=== PATIENT | male | born 1970 | race Caucasian/White ===

== ENCOUNTER 2019-06-23 06:56 | Day surgery (SDC) | payer OTHER ==
[2019-06-23] MEDS ORDERED: PROPOFOL INJ 200 MG/20 ML VIAL IV ONE (07:39)
[2019-06-23 10:18] VITALS: BP 135/90
--- NOTE | 2019-06-23 12:47 | Operative Report ---
Operative Report DATE OF SURGERY: 06/23/19 Operative Report: Risk, benefits and alternatives of the procedure including the risk of bleeding, perforation requiring surgery have been explained to the patient in detail and informed consent has been obtained. Patient is placed in a left, lateral decubital position. Timeout was called. Propofol medication is administered. Rectal examination is done which did not reveal any masses, tears or fissures. An Olympus videoscope was introduced into the patient's rectum. Scope was then carefully advanced all the way to the cecum. Cecum was identified by the usual anatomical landmarks of the ileocecal valve as well as the appendiceal office. Photodocumentation is obtained. Scope was then sequentially pulled back via the various segments of the colon including the ascending colon, hepatic flexure, transverse colon, splenic flexure, descending colon finding to the rectosigmoid portions of the colon. Retroflexion maneuvers performed. PREOPERATIVE DIAGNOSIS: Colorectal cancer screening POSTOPERATIVE DIAGNOSIS: 2 rectal polyps I removed via snare polypectomy and retrieved. Internal hemorrhoids OPERATION: Colonoscopy with snare polypectomy SURGEON: HUMBERTO BRYAN ANESTHESIA: LMAC TISSUE REMOVED OR ALTERED: As noted above. COMPLICATIONS: None. ESTIMATED BLOOD LOSS: None. INTRAOPERATIVE FINDINGS: As noted above. PROCEDURE: Patient tolerated the procedure well. No immediate postprocedure complications are noted. Patient is discharged in good condition. Discharge date 06/23/2019. Discharge diet: Regular. Discharge activity: Regular. 2 to 3-week follow-up to discuss findings. Patient is instructed to call the office or proceed to the emergency room should there be any further problems or questions. 3 to 5-year surveillance colonoscopy.
== END 2019-06-23 10:19 | disposition home or self-care (01) ==
LOC: END 06:56
PROVIDERS: ATTEND Internal Medicine Gastroenterology
DX: D12.8 Benign neoplasm of rectum (principal); K64.8 Other hemorrhoids; E78.5 Hyperlipidemia, unspecified; F17.210 Nicotine dependence, cigarettes, uncomplicated; E11.9 Type 2 diabetes mellitus without complications; Z79.84 Long term (current) use of oral hypoglycemic drugs; Z79.899 Other long term (current) drug therapy; E66.9 Obesity, unspecified; Z68.39 Body mass index [BMI] 39.0-39.9, adult
CPT/HCPCS: 45385; 82962; 88305 ×2; 00812; J2704; 812

== ENCOUNTER 2019-07-04 09:12 | Observation (INO) | payer OTHER ==
[2019-07-04 10:14] LABS: ABSOLUTE BASOPHILS # (AUTO) 0.1 10^3/uL (0.0-0.2); ABSOLUTE EOSINOPHILS # (AUTO) 0.5 10^3/uL (0.0-0.6); ABSOLUTE LYMPHOCYTES (AUTO) 4.5 10^3/uL (0.5-4.7); ABSOLUTE MONOCYTES (AUTO) 1.6 10^3/uL (0.1-1.4); ABSOLUTE NEUT (AUTO) 13.2 10^3/uL (1.7-8.2); BASOPHILS % (AUTO) 0.5 % (0-2); EOSINOPHILS % (AUTO) 2.3 % (0-6); HEMATOCRIT 41.3 % (37.9-51.0); HEMOGLOBIN 13.6 g/dL (13.5-17.0); LYMPHOCYTES % (AUTO) 22.8 % (13-45); MEAN CORPUSCULAR HGB CONC 32.8 g/dL (32.0-36.0); MEAN CORPUSCULAR VOLUME 85 fl (80-97); MONOCYTES % (AUTO) 7.9 % (3-13); PLATELET COUNT 305 10^3/uL (150-450); RED BLOOD COUNT 4.85 10^6/uL (4.35-5.55); RED CELL DISTRIBUTION WIDTH 13.3 % (11.5-14.0); SEGMENTED NEUTROPHILS % (AUTO) 66.5 % (42-78); TOTAL CELLS COUNTED % (AUTO) 100 %; WHITE BLOOD COUNT 19.9 10^3/uL (4.0-10.5)
[2019-07-04 10:19] LABS: PROTHROMBIN TIME 13.2 SEC (11.4-15.4)
[2019-07-04 10:37] LABS: ALBUMIN 4.2 g/dL (3.5-5.0); ANION GAP 14 (5-19); BILIRUBIN,DIRECT 0.3 mg/dL (0.0-0.4); BILIRUBIN,TOTAL 0.6 mg/dL (0.2-1.3); CARBON DIOXIDE 23 mmol/L (22-30); CHLORIDE 99 mmol/L (98-107); NEONATAL BILIRUBIN RESULT 0.4 mg/dL (0.1-1.1); TOTAL PROTEIN 7.8 g/dL (6.3-8.2)
[2019-07-04 10:46] LABS: ALKALINE PHOSPHATASE 110 U/L (38-126); ASPARTATE AMINO TRANSFERASE 25 U/L (17-59); BLOOD UREA NITROGEN 19 mg/dL (7-20); CALCIUM 9.5 mg/dL (8.4-10.2); GLUCOSE 257 mg/dL (75-110)
[2019-07-04] MEDS ORDERED: NORMAL SALINE 1000 ML 1,000 ML IV ONE (10:46)
--- NOTE | 2019-07-04 10:51 | ER Document Report ---
ED GI Bleed / Rectal Pain - General Chief Complaint: Rectal Bleeding Stated Complaint: DIARRHEA,BLOOD IN STOOL Time Seen by Provider: 07/04/19 09:50 Notes: 48-year-old man presents to the emergency department history of colonoscopy on 06/23/2019. He states that 2 polyps were removed at that time. This morning he began having rectal bleeding. States he felt that he needed to use the bathroom and noted gushing of bright red blood. He has had multiple episodes of bright red blood per rectum since that time. He denies abdominal pain, nausea or vomiting. No prior history of GI bleeds in the past. Apparently had a Cologuard which came back positive leading to the colonoscopy in late May. Denies any other associated medical problems. TRAVEL OUTSIDE OF THE [place] IN LAST 30 DAYS: No - Related Data Allergies/Adverse Reactions: No Known Allergies Allergy (Verified 06/23/19 07:33) Past Medical History - Social History Smoking Status: Current Every Day Smoker Family History: Reviewed & Not Pertinent Patient has suicidal ideation: No Patient has homicidal ideation: No - Past Medical History Cardiac Medical History: Denies: Hx Coronary Artery Disease, Hx Heart Attack, Hx Hypertension Pulmonary Medical History: Denies: Hx Asthma, Hx Bronchitis, Hx COPD, Hx Pneumonia Neurological Medical History: Denies: Hx Cerebrovascular Accident, Hx Seizures Musculoskeletal Medical History: Denies Hx Arthritis - Immunizations Hx Diphtheria, Pertussis, Tetanus Vaccination: - UNSURE Hx Pneumococcal Vaccination: 12/29/18 Review of Systems - Review of Systems Notes: Constitutional: Negative for fever. HENT: Negative for sore throat. Eyes: Negative for visual changes. Cardiovascular: + Tachycardia Respiratory: Negative for shortness of breath. Gastrointestinal: + Lower GI bleeding Genitourinary: + Right flank pain. Musculoskeletal: Negative for back pain. Skin: Negative for rash. Neurological: Negative for headaches, weakness or numbness. 10 point ROS negative except as marked above and in HPI. Physical Exam - Vital signs Vitals: Temp Pulse Resp BP Pulse Ox 99.0 F 124 H 20 112/58 L 97 07/04/19 09:19 07/04/19 09:19 07/04/19 09:19 07/04/19 09:19 07/04/19 09:19 - Notes Notes: PHYSICAL EXAMINATION: Physical Exam: General: Well-nourished well-developed 48-year-old man in no acute distress HEENT: NC/AT, pupils equal round and reactive to light, MM moist,nares clear, oropharynx clear, airway patent Neck: supple, no adenopathy, no masses. Good range of motion Lungs: clear, no wheezing, no rales no rhonchi CVS: Regular rate and rhythm no murmur gallop or rub Abdomen: Soft, active, nontender, no masses, no hepatosplenomegaly Ext: No edema, clubbing or cyanosis. Neuro: Alert and responsive, moving all 4 extremities on command, cranial nerves intact, no focal findings Skin: Intact no open lesions, no rash PSYCH: Normal mood, normal affect. Course - Re-evaluation Re-evalutation: 07/04/19 12:31 Patient is given IV fluids and, type and screen, patient is hemodynamically stable. Discussed the patient with Dr. Francisco, suggested the patient be brought into the hospital and possibly scoped later today. Hospitalist is contacted Dr. Cedeno, patient will be admitted for further evaluation and treatment. - Vital Signs Vital signs: Temp Pulse Resp BP Pulse Ox 98.2 F 84 18 96/53 L 96 07/05/19 11:12 07/05/19 11:12 07/05/19 11:12 07/05/19 04:18 07/05/19 11:12 - Laboratory Result Diagrams: 07/05/19 05:02 07/05/19 05:02 Laboratory results interpreted by me: 07/04/19 07/04/19 09:50 09:50 WBC 19.9 H Absolute Neuts (auto) 13.2 H Absolute Monos (auto) 1.6 H Sodium 135.9 L Glucose 257 H - Diagnostic Test Radiology reviewed: Image reviewed, Reports reviewed - Chest x-ray: No acute findings CT abdomen and pelvis with IV contrast. 2.3 mm stone in the right renal pelvis with a collecting system fullness, no obstruction noted. No acute intra-abdominal process. Discharge - Discharge Clinical Impression: Lower GI bleeding Condition: Good Disposition: ADMITTED INPATIENT Admitting Provider: Wilian (Hospitalist) Unit Admitted: [facility]
--- NOTE | 2019-07-04 11:56 | RADIOLOGY REPORT (SQ) ---
EXAM DESCRIPTION: CT ABD/PELVIS WITH IV ONLY COMPLETED DATE/TIME: 07/04/2019 11:38 am REASON FOR STUDY: GI bleed COMPARISON: None. TECHNIQUE: CT scan of the abdomen and pelvis performed using helical scanning technique with dynamic intravenous contrast injection. Patient was given oral contrast. Images reviewed with lung, soft ti ssue, and bone windows. Reconstructed coronal and sagittal MPR images reviewed. Delayed images for ev aluation of the urinary system also acquired. All images stored on PACS. All CT scanners at this facility use dose modulation, iterative reconstruction, and/or weight based d osing when appropriate to reduce radiation dose to as low as reasonably achievable (ALARA). [facility]: Dose Right [facility]: CareDose [facility]: Dose Right [facility]: Teradose 4D [facility]: [employer] CONTRAST TYPE AND DOSE: contrast/concentration: Isovue 350.00 mg/ml; Total Contrast Delivered: 100.0 ml; Total Saline Delivered: 68.0 ml RENAL FUNCTION: Creatinine 1.04 RADIATION DOSE: CT Rad equipment meets quality standard of care and radiation dose reduction techniq ues were employed. CTDIvol: 19.5 - 20.4 mGy. DLP: 2228 mGy-cm.. LIMITATIONS: None. FINDINGS: LOWER CHEST: No significant findings. No nodules or infiltrates. LIVER: Normal size. No masses. No dilated ducts. SPLEEN: Normal size. No focal lesions. PANCREAS: No masses. No significant calcifications. No adjacent inflammation or peripancreatic fluid collections. Pancreatic duct not dilated. GALLBLADDER: No identified stones by CT criteria. No inflammatory changes to suggest cholecystitis. ADRENAL GLANDS: No significant masses or asymmetry. RIGHT KIDNEY AND URETER: No solid masses. There is a 2.3 cm stone within the right renal pelvis wit h mild fullness of the collecting system (Hounsfield units 1090). Additional punctate stone within t he upper pole. 8 mm stone within the lower pole . No hydroureter LEFT KIDNEY AND URETER: No solid masses. There is a nonobstructing stone within the interpolar reena on measuring 9 mm. No hydronephrosis or hydroureter. AORTA AND VESSELS: No aneurysm. No dissection. Renal arteries, SMA, celiac without stenosis. RETROPERITONEUM: No retroperitoneal adenopathy, hemorrhage or masses. BOWEL AND PERITONEAL CAVITY: No masses or inflammatory changes. No free fluid or peritoneal masses. APPENDIX: Normal. PELVIS: Unremarkable urinary bladder. Non opacification of the left ureter on delayed imaging. No p elvic free fluid, adenopathy or mass. ABDOMINAL WALL: Diastases recti. Small fat containing left inguinal hernia. No discrete soft tissue mass. BONES: No acute bony abnormality. No suspicious osseous lesions. OTHER: No other significant finding. IMPRESSION: 1. 2.3 cm stone within the right renal pelvis with associated fullness of the collectin g system. There is non opacification of the right-sided ureter. 2. Additional nonobstructing bilateral renal stones as above. 3. No other evidence of acute intra-abdominal/pelvic process. TECHNICAL DOCUMENTATION: JOB ID: [id number] Quality ID # [id number]: Final reports with documentation of one or more dose reduction techniques (e.g., Au tomated exposure control, adjustment of the mA and/or kV according to patient size, use of iterative reconstruction technique) 2010 [employer]- All Rights Reserved Reading location - IP/workstation name: [email or web address]
[2019-07-04] MEDS: PIPERACILLIN SODIUM/TAZOBACTAM 4.5 GM in NORMAL SALINE 100 ML IV SCH ×3 (12:01→23:28)
--- NOTE | 2019-07-04 12:04 | RADIOLOGY REPORT (SQ) ---
EXAM DESCRIPTION: CHEST SINGLE VIEW COMPLETED DATE/TIME: 07/04/2019 11:44 am REASON FOR STUDY: Possible sepsis COMPARISON: None. EXAM PARAMETERS: NUMBER OF VIEWS: One view. TECHNIQUE: Single frontal radiographic view of the chest acquired. RADIATION DOSE: NA LIMITATIONS: None. FINDINGS: LUNGS AND PLEURA: No opacities, masses or pneumothorax. No pleural effusion. MEDIASTINUM AND HILAR STRUCTURES: No masses. Contour normal. HEART AND VASCULAR STRUCTURES: Heart normal in size. Normal vasculature. BONES: No acute findings. HARDWARE: None in the chest. OTHER: No other significant finding. IMPRESSION: NO ACUTE RADIOGRAPHIC FINDING IN THE CHEST. TECHNICAL DOCUMENTATION: JOB ID: [id number] 2010 [employer]- All Rights Reserved Reading location - IP/workstation name: [email or web address]
[2019-07-04] MEDS ORDERED: GLUCAGON,HUMAN RECOMB 1 MG INJ ONE (12:41)
[2019-07-04] MEDS ORDERED: DIPHENHYDRAMINE HCL 50 MG/ML VIAL ONE (12:41)
[2019-07-04] MEDS ORDERED: NALOXONE HCL INJ/PF 0.4 MG/1 ML SDV ONE (12:41)
[2019-07-04] MEDS ORDERED: ONDANSETRON HCL INJ/PF 4 MG/2 ML SDV ONE (12:41)
[2019-07-04] MEDS ORDERED: FLUMAZENIL INJ 0.5 MG/5 ML VIAL ONE (12:41)
[2019-07-04] MEDS ORDERED: EPINEPHRINE INJ 1 MG/10 ML DISP.SYRIN ONE (12:41)
[2019-07-04] MEDS: MIDAZOLAM 2 MG/2 ML INJ ONE ×2 (13:08→13:20)
[2019-07-04] MEDS: FENTANYL CITRATE INJ/PF 100 MCG/2 ML AMPUL ONE ×3 (13:10→13:15)
--- NOTE | 2019-07-04 14:23 | PDOC H&P ---
History of Present Illness Admission Date/PCP: 07/04/19 12:48 JHONNY KENNEDY MD History of Present Illness: ELEN ZAPATA JR is a 48 year old male comes in through the emergency room for bright red blood per rectum this morning. According to the patient he states that he felt like he had to have a bowel movement and when he went to the bathroom he noticed a "gush" of bright red blood he had multiple episodes of this this morning. Denies any nausea or vomiting or any abdominal pain. No history of previous GI bleeds in the past. Patient evidently did a Cologuard back in April or May and subsequently due to it being positive had a colonoscopy June 23 of this year. At that time [address] Gordillo the ordnance truck installation mechanic who performed the colonoscopy has been consulted and is going to perform a colonoscopy today evaluation of the bright red blood per rectum. Past Medical History Cardiac Medical History: Denies: Coronary Artery Disease, Myocardial Infarction, Hypertension Pulmonary Medical History: Denies: Asthma, Bronchitis, Chronic Obstructive Pulmonary Disease (COPD), Pn eumonia Neurological Medical History: Denies: Seizures Endocrine Medical History: Reports: Diabetes Mellitus Type 2 Musculoskeltal Medical History: Denies: Arthritis Hematology: Denies: Anemia Social History Smoking Status: Current Every Day Smoker - Advance Directive Resuscitation Status: Full Code Family History Parental Family History Reviewed: No Children Family History Reviewed: No Sibling(s) Family History Reviewed.: No Medication/Allergy Home Medications: Atorvastatin Calcium [Lipitor] 80 mg PO QHS 06/23/19 Glimepiride [Amaryl 4 mg Tablet] 4 mg PO DAILY 06/23/19 Metformin HCl 1,000 mg PO BID 06/23/19 Allergies/Adverse Reactions: No Known Allergies Allergy (Verified 06/23/19 07:33) Review of Systems Constitutional: ABSENT: chills, fever(s), headache(s), weight gain, weight loss Cardiovascular: ABSENT: chest pain, dyspnea on exertion, edema, orthropnea, palpitations Respiratory: ABSENT: cough, hemoptysis Gastrointestinal: PRESENT: hematochezia Neurological: ABSENT: abnormal gait, abnormal speech, confusion, dizziness, focal weakness, syncope Psychiatric: ABSENT: anxiety, depression, homidical ideation, suicidal ideation Physical Exam Vital Signs: Temp Pulse Resp BP Pulse Ox 99.0 F 106 H 22 H 112/73 94 07/04/19 09:19 07/04/19 14:05 07/04/19 14:05 07/04/19 14:05 07/04/19 14:05 Intake & Output 07/03/19 07/04/19 07/05/19 06:59 06:59 06:59 Intake Total 100 Balance 100 Weight 110.7 kg General appearance: PRESENT: no acute distress Respiratory exam: PRESENT: clear to auscultation tar. ABSENT: rales, rhonchi, wheezes Cardiovascular exam: PRESENT: RRR. ABSENT: diastolic murmur, rubs, systolic murmur GI/Abdominal exam: PRESENT: other - For to GI Rectal exam: PRESENT: deferred, heme (+) stool Results Laboratory Results: 07/04/19 09:50 07/04/19 09:50 07/04/19 07/04/19 07/04/19 09:50 09:50 09:50 WBC 19.9 H RBC 4.85 Hgb 13.6 Hct 41.3 MCV 85 MCH 28.0 MCHC 32.8 RDW 13.3 Plt Count 305 Seg Neutrophils % 66.5 Sodium 135.9 L Potassium 5.0 Chloride 99 Carbon Dioxide 23 Anion Gap 14 BUN 19 Creatinine 1.04 Est GFR ( Amer) > 60 Glucose 257 H Lactic Acid Calcium 9.5 Total Bilirubin 0.6 AST 25 Alkaline Phosphatase 110 Total Protein 7.8 Albumin 4.2 Blood Type A POSITIVE Antibody Screen NEGATIVE 07/04/19 11:00 WBC RBC Hgb Hct MCV MCH MCHC RDW Plt Count Seg Neutrophils % Sodium Potassium Chloride Carbon Dioxide Anion Gap BUN Creatinine Est GFR ( Amer) Glucose Lactic Acid 1.9 Calcium Total Bilirubin AST Alkaline Phosphatase Total Protein Albumin Blood Type Antibody Screen Impressions: Chest X-Ray 07/04/19 10:49 IMPRESSION: NO ACUTE RADIOGRAPHIC FINDING IN THE CHEST. Abdomen/Pelvis CT 07/04/19 10:50 IMPRESSION: 1. 2.3 cm stone within the right renal pelvis with associated fullness of the collecting system. There is non opacification of the right- sided ureter. 2. Additional nonobstructing bilateral renal stones as above. 3. No other evidence of acute intra-abdominal/pelvic process. Assessment and Plan - Diagnosis (1) Diabetes Is this a current diagnosis for this admission?: Yes (2) Colon polyps Is this a current diagnosis for this admission?: Yes (3) Lower GI bleeding Is this a current diagnosis for this admission?: Yes - Plan Summary Summary: Patient is hemodynamically stable. The emergency room his vital signs are pressure 99, has been elevated he came in at 124 recently it was 106 after IV fluids. BP has always been stable on admission it was 112/58 recently following the colonoscopy was 112/73. O2 sats 98% on room air Patient has already had a colonoscopy by Dr. Francisco. Patient hemoglobin is stable 13.6 hematocrit 41.3 platelets 305,000. Count is elevated for some reason 19.9 although patient has no source of infection. Coags are normal. Chemistry reveals potassium slightly high at 5.0, glucose high at 257, lactic acid 1.9. CT scan of the abdomen and pelvis the emergency room shows kidney stones laterally but no evidence of acute intra-abdominal or pelvic process. We will wait to hear from gastroenterology concerning further studies. Patient will be put in observation status overnight to recheck hemoglobin and white blood cell count. - Time Time Spent with patient: 35 or more minutes
[2019-07-04] MEDS ORDERED: ONDANSETRON 4 MG TAB.RAPDIS PO PRN (14:47)
[2019-07-04] MEDS ORDERED: OXYCODONE-ACETAMINOPHEN 5-325 MG TABLET PO PRN (14:47)
[2019-07-04] MEDS ORDERED: TEMAZEPAM 7.5 MG CAPSULE PO PRN (14:47)
[2019-07-04] MEDS ORDERED: MAG HYDROX/AL HYDROX/SIMETH SUSP 30 ML UDCUP PO PRN (14:47)
[2019-07-04] MEDS ORDERED: ACETAMINOPHEN 325 MG TABLET PO PRN (14:47)
[2019-07-04] MEDS ORDERED: ONDANSETRON HCL INJ/PF 4 MG/2 ML SDV IV PRN (14:47)
[2019-07-04] MEDS ORDERED: DEXTROSE 40% GEL 15 GM TUBE PO PRN ×2 (14:56)
[2019-07-04] MEDS ORDERED: DEXTROSE 50%-WATER 25 GM/50 ML DISP.SYRIN IV PRN ×2 (14:56)
[2019-07-04] MEDS ORDERED: GLUCAGON,HUMAN RECOMB 1 MG INJ IM PRN (14:56)
[2019-07-04] MEDS: NORMAL SALINE 1000 ML 1,000 ML IV PRN (16:00)
[2019-07-04] MEDS ORDERED: METFORMIN HCL 500 MG TABLET PO SCH (16:00)
--- NOTE | 2019-07-04 16:56 | Operative Report ---
Operative Report DATE OF SURGERY: 07/04/19 Operative Report: The risks, benefits and alternatives are explained to the patient in detail informed consent is obtained patent is agreeable conscious sedation is provided Time out is called colonoscopy is inserted into the patient 's colon PREOPERATIVE DIAGNOSIS: rectal bleeding POSTOPERATIVE DIAGNOSIS: patient s/p colonoscopy with polyp removed about 10 days ago. patient had clot on site of previous colon removal. copious amounts done. Endo clip placed at site. patient also at gold probe to cauterize the lesion. by end of procedure , bleeding had resolved OPERATION: Colonoscopy with control of hemorrhage SURGEON: HUMBERTO BRYAN ANESTHESIA: Moderate Sedation - 3mg of Versed, 100mcg of Fentanyl, Consious sedation monitoring time 30 mins TISSUE REMOVED OR ALTERED: none COMPLICATIONS: none ESTIMATED BLOOD LOSS: none INTRAOPERATIVE FINDINGS: as noted above PROCEDURE: patient tolerated the procedure well no post procedure complications continue to watch clinically if patient rebleeds likely will be obvious monitor H/H NPO today clear liquids tomorrow if no further bleeding can discharge if H/H is stable is updated please call if needed
[2019-07-04 17:21] LABS: APPEARANCE,URINE CLEAR; BILIRUBIN,URINE NEGATIVE (NEGATIVE); COLOR,URINE YELLOW; GLUCOSE, URINE NEGATIVE (NEGATIVE); KETONES,URINE NEGATIVE (NEGATIVE); LEUKOCYTE ESTERASE,URINE TRACE (NEGATIVE); NITRITE,URINE NEGATIVE (NEGATIVE); PROTEIN,URINE 30 mg/dL (NEGATIVE); URINE SPECIFIC GRAVITY 1.057; UROBILINOGEN,URINE NEGATIVE mg/dL (<2.0)
[2019-07-04] MEDS: INSULIN LISPRO 100 UNIT/ML 3 ML VIAL SUBCUT SCH ×2 (17:46→21:53)
[2019-07-04] MEDS: FAMOTIDINE INJ/PF 20 MG/2 ML SDV IV SCH (21:51)
[2019-07-04] MEDS ORDERED: ATORVASTATIN CALCIUM 80 MG TABLET PO SCH (22:00)
[2019-07-05 04:44] VITALS: BP 96/53
[2019-07-05 06:09] LABS: ABSOLUTE BASOPHILS # (AUTO) 0.1 10^3/uL (0.0-0.2); ABSOLUTE EOSINOPHILS # (AUTO) 0.3 10^3/uL (0.0-0.6); ABSOLUTE LYMPHOCYTES (AUTO) 3.5 10^3/uL (0.5-4.7); ABSOLUTE MONOCYTES (AUTO) 0.9 10^3/uL (0.1-1.4); ABSOLUTE NEUT (AUTO) 6.7 10^3/uL (1.7-8.2); BASOPHILS % (AUTO) 0.6 % (0-2); EOSINOPHILS % (AUTO) 2.7 % (0-6); HEMATOCRIT 30.4 % (37.9-51.0); LYMPHOCYTES % (AUTO) 30.6 % (13-45); MEAN CORPUSCULAR HEMOGLOBIN 28.3 pg (27.0-33.4); MEAN CORPUSCULAR HGB CONC 33.5 g/dL (32.0-36.0); MEAN CORPUSCULAR VOLUME 84 fl (80-97); MONOCYTES % (AUTO) 7.6 % (3-13); PLATELET COUNT 189 10^3/uL (150-450); RED CELL DISTRIBUTION WIDTH 13.6 % (11.5-14.0); SEGMENTED NEUTROPHILS % (AUTO) 58.5 % (42-78); TOTAL CELLS COUNTED % (AUTO) 100 %; WHITE BLOOD COUNT 11.4 10^3/uL (4.0-10.5)
[2019-07-05 06:13] LABS: HEMOGLOBIN 10.2 g/dL (13.5-17.0)
[2019-07-05 06:27] LABS: ANION GAP 8 (5-19); BLOOD UREA NITROGEN 16 mg/dL (7-20); CALCIUM 8.2 mg/dL (8.4-10.2); CARBON DIOXIDE 24 mmol/L (22-30); CHLORIDE 104 mmol/L (98-107); GLUCOSE 185 mg/dL (75-110); POTASSIUM 4.3 mmol/L (3.6-5.0)
[2019-07-05] MEDS: PIPERACILLIN SODIUM/TAZOBACTAM 4.5 GM in NORMAL SALINE 100 ML IV SCH (06:48)
[2019-07-05] MEDS: NORMAL SALINE 1000 ML 1,000 ML IV PRN (06:49)
[2019-07-05] MEDS ORDERED: GLIMEPIRIDE 4 MG TABLET PO SCH (10:00)
[2019-07-05] MEDS: INSULIN LISPRO 100 UNIT/ML 3 ML VIAL SUBCUT SCH (11:06)
[2019-07-05] MEDS: FAMOTIDINE INJ/PF 20 MG/2 ML SDV IV SCH (11:07)
== END 2019-07-05 11:45 | disposition home or self-care (01) ==
LOC: ER 09:12 → EH 12:48 → INTOOBSV 12:48 → 3W 14:28
PROVIDERS: ADMIT Internal Medicine; ATTEND Internal Medicine
DX: K91.840 Postprocedural hemorrhage of a digestive system organ or structure following a digestive system procedure (principal); Y84.8 Other medical procedures as the cause of abnormal reaction of the patient, or of later complication, without mention of misadventure at the time of the procedure; F17.200 Nicotine dependence, unspecified, uncomplicated; E11.9 Type 2 diabetes mellitus without complications; N20.0 Calculus of kidney; R00.0 Tachycardia, unspecified; Z79.84 Long term (current) use of oral hypoglycemic drugs; Z86.010 Personal history of colon polyps
CPT/HCPCS: 99285; 96365; 45382; 86900; 86901; 36415 ×2; 87040; 86850; 82962 ×2; 83605; 85025 ×2; 85610; 85730; 87077; 80048; 80053; 81001; 87150 ×26; 71045; 74177; G0378 ×2; J2250; J3010; J1815; J3490 ×2; J7050 ×2; J7030 ×2; S0028; J2543 ×2; J0171; J1200; J1610; J2310; J2405